=== PATIENT | male | born 1985 | race Caucasian/White ===

== ENCOUNTER 2019-12-27 14:07 | Emergency (ER) | payer MEDICAID ==
[~2019-12-27] VITALS: Ht 170.2 cm; Wt 80.3 kg
[2019-12-27 14:18] VITALS: Ht 170.2 cm; Wt 80.3 kg
[2019-12-27 15:49] VITALS: BP 130/51
== END 2019-12-27 15:49 | disposition home or self-care (01) ==
LOC: ED 14:07
DX: L02.415 Cutaneous abscess of right lower limb (principal)